=== PATIENT | male | born 1965 | race Caucasian/White ===

== ENCOUNTER 2018-06-15 10:36 | Emergency (ER) | payer SELFPAY ==
[~2018-06-15] VITALS: Wt 97.7 kg
[2018-06-15] MEDS ORDERED: LISI1TAB8 PO (12:29)
--- NOTE | 2018-06-15 12:32 | ERD ---
ER Documentation Chief Complaint Chief Complaint ELEVATED BP, NO DIZZINESS, NO N/V HPI This 53-year-old male presents with history of hypertension. He was seen at [facility] for a left shoulder injury was noted to have high blood pressure. He was recommended to follow-up with primary doctor for evaluation of hypertension. He was started on lisinopril and hydrochlorothiazide 10 and 12.5 respectively. He denies chest pain, shortness of breath, weakness, deficits, headache. He has left shoulder pain and left trapezius pain consistent with his work injury of rotator cuff injury. ROS All systems reviewed and are negative except as per history of present illness. Medications Home Meds Active Scripts Lisinopril/Hydrochlorothiazide (Lisinopril-Hctz 20-25 mg Tab) 1 Each Tablet, 1 EACH PO q day, #30 TAB Prov:BRAYAN HERNDON MD 06/15/18 PMhx/Soc Hx Alcohol Use: No Hx Substance Use: No Hx Tobacco Use: No Smoking Status: Never smoker FmHx Family History: No diabetes, No coronary disease, No other Physical Exam Vitals Vital Signs Date Temp Pulse Resp B/P (MAP) Pulse Ox O2 O2 Flow FiO2 Time Delivery Rate 06/15/18 97.1 73 17 179/92 98 10:42 (121) Physical Exam Const: No acute distress Head: Atraumatic Eyes: Normal Conjunctiva ENT: Normal External Ears, Nose and Mouth. Neck: Full range of motion. No meningismus. Resp: Clear to auscultation bilaterally Cardio: Regular rate and rhythm, no murmurs Abd: Soft, non tender, non distended. Normal bowel sounds Skin: No petechiae or rashes Back: No midline or flank tenderness Ext: No cyanosis, or edema Neur: Awake and alert Psych: Normal Mood and Affect Result Diagram: 06/15/18 1136 06/15/18 1136 Results 24 hrs Laboratory Tests Test 06/15/18 11:36 White Blood Count 7.4 10^3/ul Red Blood Count 4.85 10^6/ul Hemoglobin 13.8 g/dl Hematocrit 42.9 % Mean Corpuscular Volume 88.5 fl Mean Corpuscular Hemoglobin 28.5 pg Mean Corpuscular Hemoglobin Concent 32.2 g/dl Red Cell Distribution Width 13.0 % Platelet Count 261 10^3/UL Mean Platelet Volume 12.0 fl Immature Granulocytes % 0.700 % Neutrophils % 54.7 % Lymphocytes % 33.4 % Monocytes % 9.0 % Eosinophils % 1.5 % Basophils % 0.7 % Nucleated Red Blood Cells % 0.0 /100WBC Immature Granulocytes # 0.050 10^3/ul Neutrophils # 4.0 10^3/ul Lymphocytes # 2.5 10^3/ul Monocytes # 0.7 10^3/ul Eosinophils # 0.1 10^3/ul Basophils # 0.1 10^3/ul Nucleated Red Blood Cells # 0.0 10^3/ul Sodium Level 139 mmol/L Potassium Level 4.0 mmol/L Chloride Level 102 mmol/L Carbon Dioxide Level 28 mmol/L Anion Gap 9 Blood Urea Nitrogen 16 mg/dl Creatinine 0.79 mg/dl Est Glomerular Filtrat Rate mL/min > 60 mL/min Glucose Level 96 mg/dl Calcium Level 9.1 mg/dl Procedures/MDM EKG: Rate/Rhythm: Normal Sinus Rhythm. Rate equals 67 QRS, ST, T-waves: No changes consistent w/ acute ischemia Impression: No evidence of ischemia or arrhythmia See normal. Basic metabolic panel shows no renal insufficiency or failure. Patient presents for evaluation of elevated blood pressure despite blood press ure medication prescribed during her work comp injury recently. He has no signs of hypertensive emergency or endorgan damage. He will be discharged home with an increase in his life lisinopril and hydrochlorothiazide to 20 and 25 respectively. [facility] will be [facility] further evaluation and management and primary care. The patient was stable with no new complaints during the ER course. Clinically, there is no current evidence to suggest meningitis, sepsis, acute abdomen, pneumonia, stroke, acute coronary syndrome, pulmonary embolism, aortic dissection or any other emergent condition appearing to require further evaluation or hospitalization. Patient counseled regarding my diagnostic impression and care plan. Prior to discharge all questions answered. Pt agrees with treatment plan and understands strict return precautions. Pt is instructed to follow up with primary care provider within 24- 48 hours. Precautionary instructions provided including instructions to return to the ER if not improving or for any worsening or changing symptoms or concerns. Departure Diagnosis: Primary Impression: Hypertension Hypertension type: unspecified Qualified Codes: I10 - Essential (primary) hypertension Condition: Stable [facility] Usted se sosa hecho un examen mdico de control que le indica que no est en steff condicin que requiera tratamiento urgente en el Departamento de Emergencia. Un estudio ms profundo y el tratamiento de echevarria condicin pueden esperar sin ningn riesgo hasta que usted sea atendida/o en el consultorio de echevarria mdico o steff clnica. Es responsabilidad suya arreglar steff meagan para el seguimiento del samantha. MANEJO DE CONDICIONES NO URGENTES EN EL FUTURO 1) Si usted tiene un mdico de atencin primaria: Usted debera llamar a echevarria mdico de atencin primaria antes de venir al departamento de emergencia. Despus de las horas de consultorio, echevarria doctor o echevarria asociado/a est disponible por telfono. El mdico o enfermero de [place] en el servicio telefnico puede asesorarle por david medio para atender el problema, o samantha contrario se puede programar steff meagan. 2) Si usted no tiene un mdico de atencin primaria: Llame al mdico o clnica de referencia que aparece abajo robby las horas de consultorio para hacer steff meagan para que le vean. CLINICAS: [facility] [phone] [facility] [phone] [facility] [phone] [facility]. [facility] [phone] [place] [id number] [phone] [phone] Additional Instructions: Examines normal hoy. Cheque otro vez con echevarria doctor primario en el proximo perez or regresa para mas o nueva simptomas. BRAYAN HERNDON MD Jun 15, 2018 12:32
[2018-06-15 12:43] VITALS: BP 159/85; PULSE 76; RESP 20
== END 2018-06-15 12:44 | disposition home or self-care (01) ==
LOC: FTE 10:36
DX: I10 Essential (primary) hypertension (principal)
CPT/HCPCS: 80048; 85025; 93005